=== PATIENT | female | born 1990 | race Caucasian/White ===

== ENCOUNTER 2024-12-06 16:27 | Emergency (ER) | payer BC, MEDICAID ==
[~2024-12-06] VITALS: Ht 175.3 cm; Wt 65.9 kg
[2024-12-06 16:43] VITALS: BP 107/70; PULSE 100; RESP 18; TEMP 98; O2SAT 100
[2024-12-06] MEDS ORDERED: CEPH-558 PO (18:34)
[2024-12-06] MEDS: PERTUSS(ACELL),DIPH,TET/PF 0.5 ML SYRINGE [ADULT] IM. ONE (18:51)
== END 2024-12-06 19:05 | disposition home or self-care (01) ==
LOC: EMS 16:27
DX: S09.8XXA Other specified injuries of head, initial encounter (principal); J34.2 Deviated nasal septum; F12.90 Cannabis use, unspecified, uncomplicated; W19.XXXA Unspecified fall, initial encounter; Y93.89 Activity, other specified; Y92.89 Other specified places as the place of occurrence of the external cause; Y99.8 Other external cause status
CPT/HCPCS: 90471; 90715; 99283